=== PATIENT | female | born 1955 | race African-American/Black ===

== ENCOUNTER 2022-03-26 21:01 | Emergency (ER) | payer MEDICARE, OTHER ==
[~2022-03-26] VITALS: Ht 162.6 cm; Wt 64.0 kg
[2022-03-27 04:15] VITALS: BP 143/86
[2022-03-27] MEDS ORDERED: KETOROLAC 15MG/ML VIAL IM ONE (05:15)
== END 2022-03-27 06:55 | disposition home or self-care (01) ==
LOC: ER 21:01
DX: M16.12 Unilateral primary osteoarthritis, left hip (principal); I10 Essential (primary) hypertension; J44.9 Chronic obstructive pulmonary disease, unspecified
CPT/HCPCS: 73502; 96372; 99283; J1885; Z7610